=== PATIENT | female | born 1970 | race Caucasian/White ===

== ENCOUNTER 2018-12-09 07:37 | Observation (INO) ==
[2018-12-09 07:49] VITALS: BMI 35.2
--- NOTE | 2018-12-09 08:08 | DR.CP ---
HPI Time Seen Time Seen by Provider: 12/09/18 08:05 PCP Primary Care Physician: WATSON MALONEY HPI Comment HPI Comment: PATIENT IS 48YR OLD WHITE FEMALE IN THE EMERGENCY ROOM WITH PRECORDIAL CHEST PAIN, INTERMITTENT CONSTANT 6/10 DHARP PAIN CURRENTLY 8/10 PAIN. PAIN RADIATES TO BACK SOMETIME AND ASSOCIATED WITH SOB, WEAKNESS, NAUSEA AND DIAPHORESIS. NO FEVER OR URI SYMPTOMS. PAIN IS WORSE TODAY. Complaint Chief Complaint Doctor Comments: CHEST PAIN. Chief Complaint:: PT C/O CHEST PAIN TO LEFT SIDE OF CHEST. PT STATES SHE HAD SOME PAIN YESTERDAY BUT IT HAS GOTTEN REALLY BAD THIS MORNING. PT STATES SHE ALSO HAS BAD HEARTBURN/INDIGESTION Reviewed Nurses Notes Review: Yes Source History Provided: Patient Mode of Arrival Mode of Arrival: Ambulatory Timing Onset of Chief Complaint: 12/08/18 Came on: Suddenly Pain: Present Now Duration Duration: Constant Duration: Days Location Location of Chest Pain: Left and Chest Chest Pain Radiation Location: Back Context Onset: At rest Cardiac Risk Factors: Smoker and Family History PE Risk Factors: None History of: None Prehospital Care: None Quality Quality: Sharp Severity Severity: Severe Modifying Factors Worsens: Exertion Associated Signs and Symptoms Associated Signs and Symptoms: Shortness of Breath, Diaphoresis, Nausea/Vomiting and Other (WEAKNESS.) PMH PMH Past Medical History: Yes Past Medical History: GERD and Kidney Stones Past Surgical History: Yes Surgical History: Lithotripsy Family History History of Family Medical Conditions: Yes Family Medical History: Diabetes Mellitus, Cancer, Coronary Artery Disease and Hypertension Social History Does patient currently use any type of tobacco product: No Have you used tobacco products in the last 12 months: No Type of Tobacco Use: None Does any household member use tobacco: No Alcohol Use: None Do you use any recreational Drugs:: No Lives With: Family Lives Where: Home infectious screening In the last 2 months have you had wt loss of >10#?: NO Have you had fever, night sweats or hemotysis?: No Have you traveled outside the country in the last 6 months?: No Isolation: Standard ROS Review of Systems Constitutional: See HPI, Diaphoresis, Weakness and Fatigue; negative Chills, Fever, Malaise and Loss of Appetite Eyes: No Symptoms Reported and See HPI; negative Eye Pain, Tearing, Discharge and Diplopia ENTM: No Symptoms Reported and See HPI; negative Ear Pain, Nose Discharge, Nose Congestion and Throat Pain Respiratoy: Short of Breath; negative Moist Cough and Wheezing Cardiovascular: See HPI and Chest Pain; negative Edema and Palpitations Gastrointestinal/Abdominal: Nausea; negative Abdominal Pain, Constipation, Diarrhea and Vomiting Genitourinary: No Symptoms Reported and See HPI; negative Dysuria, Frequency and Hematuria Neurological: No Symptoms Reported, See HPI and Weakness; negative Headache and Dizziness Musculoskeletal: See HPI; negative Back Pain Integumentary: No Symptoms Reported and See HPI Hematologic/Lymphatic: See HPI; negative Easy Bruising and Swollen Glands Endocrine: See HPI; negative Increased Thirst, Increased Urine and Decreased Appetite Psychiatric: No Symptoms Reported and See HPI PE Vitals Vitals: Temperature 97.6 F Pulse Rate [Apical] 70 Pulse Rate 64 Respiratory Rate 28 Blood Pressure [Left Arm] 187/84 Blood Pressure 154/72 O2 Sat by Pulse Oximetry 98 General Limitations: No Limitations General Appearance: Alert and In No Apparent Distress Head Head Exam: Normal Inspection and Atraumatic Eyes Eye exam: Normal Appearance, PERRL and EOMI; negative Scleral Icterus and Conjunctival Injection ENT ENT Exam: Normal Exam, Normal Oropharynx, Normal External Ear Exam and TM's Normal Bilaterally Chest Chest Inspection: Normal Inspection and Symmetric Chest Wall Rise; negative Tenderness Respiratory Respiratory Exam: Normal Lung Sounds Bilat; negative Accessory Muscle Use, Chest Wall Tenderness and Respiratory Distress Respiratory Exam: Bilateral: Clear to Auscultation Cardiovascular Cardiovascular Exam: Regular Rate, Normal Rhythm and Normal Heart Sounds; negative Systolic Murmur and Diastolic Murmur Pulse: Normal Edema: Normal Abdominal Exam Abdominal Exam: Normal Inspection, Normal Bowel Sounds and Soft; negative Tenderness Extremities Extremities Exam: Normal Inspection and Normal Capillary Refill; negative Tenderness, Edema and Calf Tenderness Back Back Exam: Normal Inspection; negative Tenderness, (R) CVA Tenderness, (L) CVA Tenderness, Paraspinal Tenderness and Vertebral Tenderness Neurologic Neurological Exam: Alert, Oriented X3 and CN II-XII Intact; negative Motor Sens ory Deficit Psychiatric Psychiatric Exam: Normal Affect and Normal Mood Skin Skin Exam: Warm, Dry, Intact and Normal Color MDM Differential Diagnosis Differential Diagnosis: Angina, Chest Wall Pain, Cholelithasis, CHF, Costocho ndritis, Esophageal Reflux/Spasm, Gastritis, Myocardial Infarction, Pericarditis, Pleuritis, Pancreatitis, Pneumonia, Pneumothorax and Pulmonary Embolus COURSE Treatment Treatment: SEE ORDERS. 08:20AM : ASA 81MG CHEWABLE, TAB, 4TABS PO. Consultation Consultation Comments: DISCUSSED PATIENT WITH DR. AGOSTO. HE WILL ADMIT PATIENT. Education/Counseling Education/Counseling: Patient Educated On: Diagnosis ROR Labs Reviewed Laboratory Results Reviewed?: Yes Result Diagrams: 12/09/18 08:37 12/09/18 08:37 Laboratory: WBC 7.7 X10^3/uL (3.6-10.0) 12/09/18 08:37 RBC 4.68 X10^6/uL (3.5-5.4) 12/09/18 08:37 Hgb 14.3 g/dL (12.0-16.0) 12/09/18 08:37 Hct 42.0 % (36.0-47.0) 12/09/18 08:37 MCV 89.8 fL (80.0-100.0) 12/09/18 08:37 MCH 30.5 pg (27.0-34.0) 12/09/18 08:37 MCHC 33.9 g/dL (33.0-35.0) 12/09/18 08:37 RDW 13.5 % (11.6-16.5) 12/09/18 08:37 Plt Count 254 X10^3/uL (150.0-450.0) 12/09/18 08:37 MPV 9.9 fL (7.4-11.0) 12/09/18 08:37 Neut % (Auto) 56.4 % (42.0-75.0) 12/09/18 08:37 Lymph % (Auto) 31.3 % (21.0-51.0) 12/09/18 08:37 [place] % (Auto) 7.1 % (0.0-13.0) 12/09/18 08:37 Eos % (Auto) 4.6 % (0.9-2.9) H 12/09/18 08:37 Baso % (Auto) 0.6 % (0.2-1.0) 12/09/18 08:37 Neut # (Auto) 4.3 x10^3/uL (2.2-4.8) 12/09/18 08:37 Lymph # (Auto) 2.4 X10^3/uL (1.3-2.9) 12/09/18 08:37 [place] # (Auto) 0.5 x10^3/uL (0.3-0.8) 12/09/18 08:37 Eos # (Auto) 0.4 x10^3/uL (0.0-0.2) H 12/09/18 08:37 Baso # (Auto) 0.0 X10^3/uL (0.0-0.1) 12/09/18 08:37 Absolute Nucleated RBC 0.0 /100WBC 12/09/18 08:37 D-Dimer < 100 ng/mL (0-400) 12/09/18 08:37 Sodium 143 mmol/L (136-145) 12/09/18 08:37 Corrected Sodium TNP 12/09/18 08:37 Potassium 4.0 mmol/L (3.5-5.1) 12/09/18 08:37 Chloride 106 mmol/L (98-107) 12/09/18 08:37 Carbon Dioxide 28.6 mmol/L (21-32) 12/09/18 08:37 BUN 16 mg/dL (7-18) 12/09/18 08:37 Creatinine 1.05 mg/dL (0.55-1.02) H 12/09/18 08:37 Est GFR (MDRD) Af Amer > 60 (>60) 12/09/18 08:37 Est GFR (MDRD) Non-Af 59 (>60) 12/09/18 08:37 Glucose 88 mg/dL (65-99) 12/09/18 08:37 Calcium 8.9 mg/dL (8.5-10.1) 12/09/18 08:37 Corrected Calcium TNP 12/09/18 08:37 Total Bilirubin 1.40 mg/dL (0.2-1.0) H 12/09/18 08:37 AST 20 Units/L (15-37) 12/09/18 08:37 ALT 49 Units/L (12-78) 12/09/18 08:37 Alkaline Phosphatase 72 Units/L (46-116) 12/09/18 08:37 Creatine Kinase 44 Units/L (26-192) 12/09/18 10:30 CK-MB (CK-2) < 1.0 ng/mL (0-4.0) 12/09/18 10:30 CK/CKMB % Calc 2.3 % (<4) 12/09/18 10:30 Troponin I < 0.02 ng/mL (0-1.5) 12/09/18 10:30 B-Natriuretic Peptide 5.1 pg/mL (0-79) 12/09/18 08:37 Total Protein 6.7 g/dL (6.4-8.2) 12/09/18 08:37 Albumin 3.6 g/dL (3.4-5.0) 12/09/18 08:37 Globulin 3.1 g/dL (2.5-4.5) 12/09/18 08:37 Albumin/Globulin Ratio 1.2 Ratio (1.1-2.1) 12/09/18 08:37 Triglycerides 100 mg/dL (0-150) 12/09/18 10:30 Cholesterol 153 mg/dL (0-200) 12/09/18 10:30 LDL Cholesterol, Calc 75 mg/dL (0-100) 12/09/18 10:30 HDL Cholesterol 58 mg/dL (40-60) 12/09/18 10:30 Cholesterol/HDL Ratio 2.6 (0.0-5.0) 12/09/18 10:30 Specimen Type Clean catch urine 12/09/18 08:48 Urine Color Yellow (YELLOW) 12/09/18 08:48 Urine Appearance Slightly hazy (CLEAR) 12/09/18 08:48 Urine pH 8.0 (5.0 - 8.0) 12/09/18 08:48 Ur Specific [place] 1.015 (1.000-1.030) 12/09/18 08:48 Urine Protein Negative (NEGATIVE) 12/09/18 08:48 Urine Glucose (UA) Negative (NEGATIVE) 12/09/18 08:48 Urine Ketones Negative (NEGATIVE) 12/09/18 08:48 Urine Occult Blood Negative (NEGATIVE) 12/09/18 08:48 Urine Nitrite Negative (NEGATIVE) 12/09/18 08:48 Urine Bilirubin Negative (NEGATIVE) 12/09/18 08:48 Urine Urobilinogen Normal (NORMAL) 12/09/18 08:48 Ur Leukocyte Esterase 1+ (NEGATIVE) 12/09/18 08:48 Urine RBC 0-2 /HPF (0-3) 12/09/18 08:48 Urine WBC 0-2 /HPF (0-5) 12/09/18 08:48 Ur Squamous Epith Cells Rare /HPF (NEGATIVE) 12/09/18 08:48 Amorphous Sediment 1+ /HPF (NEGATIVE) 12/09/18 08:48 Urine Bacteria Trace /HPF (NEGATIVE) 12/09/18 08:48 Ur Culture Indicated? No/not indicated 12/09/18 08:48 XRAY XRAY Interpreted by: Radiologist XRAY Findings: REPORT NOTED AND DISCUSSED WITH PATIENT. EKG Rate: 79 [place]: Normal Rhythm: NSR Block: None Hypertrophy: LVH ST: Nonsp Opioid Opioid Risk Tool Total: 0 Total Score Risk Category: Low Risk Copyright: [facility] predicting aberrant behaviors Diagnosis Discharge Problem: Chest pain Qualifiers: Chest pain type: precordial pain Qualified Code(s): R07.2 - Precordial pain
[2018-12-09] MEDS ORDERED: ASPIRIN 81 MG CHEWTAB PO ONE (08:20)
[2018-12-09] MEDS ORDERED: ASPIRIN 81 MG CHEWTAB ONE (08:23)
--- NOTE | 2018-12-09 08:37 | RAD ---
Examination: Chest, portable AP History: Chest pain Findings: Normal transverse heart diameter with clear lungs and pleural spaces. Impression: Examination within normal limits. Reported By:
[2018-12-09 08:46] LABS: BASOPHILS % (AUTO) 0.6 % (0.2-1.0); EOSINOPHILS # (AUTO) 0.4 x10^3/uL (0.0-0.2); EOSINOPHILS % (AUTO) 4.6 % (0.9-2.9); HEMOGLOBIN 14.3 g/dL (12.0-16.0); LYMPHOCYTES # (AUTO) 2.4 X10^3/uL (1.3-2.9); LYMPHOCYTES % (AUTO) 31.3 % (21.0-51.0); MEAN CORPUSCULAR HEMOGLOBIN 30.5 pg (27.0-34.0); MEAN CORPUSCULAR HGB CONC 33.9 g/dL (33.0-35.0); MEAN CORPUSCULAR VOLUME 89.8 fL (80.0-100.0); MEAN PLATELET VOLUME 9.9 fL (7.4-11.0); MONOCYTES # (AUTO) 0.5 x10^3/uL (0.3-0.8); MONOCYTES % (AUTO) 7.1 % (0.0-13.0); NEUTROPHILS # (AUTO) 4.3 x10^3/uL (2.2-4.8); NEUTROPHILS % (AUTO) 56.4 % (42.0-75.0); PLATELET COUNT 254 X10^3/uL (150.0-450.0); RED BLOOD COUNT 4.68 X10^6/uL (3.5-5.4); RED CELL DISTRIBUTION WIDTH 13.5 % (11.6-16.5); WHITE BLOOD COUNT 7.7 X10^3/uL (3.6-10.0)
[2018-12-09 09:04] LABS: BILIRUBIN,URINE NEGATIVE (NEGATIVE); BLOOD/HEMOGLOBIN,URINE NEGATIVE (NEGATIVE); GLUCOSE, URINE NEGATIVE (NEGATIVE); KETONES,URINE NEGATIVE (NEGATIVE); LEUKOCYTE ESTERASE ,URINE 1+ (NEGATIVE); NITRITES,URINE NEGATIVE (NEGATIVE); PROTEIN,URINE NEGATIVE (NEGATIVE); UROBILINOGEN,URINE NORMAL (NORMAL)
[2018-12-09 09:07] LABS: ALANINE AMINOTRANSFERASE 49 Units/L (12-78); ALBUMIN 3.6 g/dL (3.4-5.0); ALKALINE PHOSPHATASE 72 Units/L (46-116); ASPARTATE AMINO TRANSFERASE 20 Units/L (15-37); BLOOD UREA NITROGEN 16 mg/dL (7-18); CALCIUM 8.9 mg/dL (8.5-10.1); CARBON DIOXIDE 28.6 mmol/L (21-32); CHLORIDE 106 mmol/L (98-107); CKMB % 2.3 % (<4); CREATINE KINASE 44 Units/L (26-192); CREATINE KINASE MB < 1.0 ng/mL (0-4.0); CREATININE 1.05 mg/dL (0.55-1.02); SODIUM 143 mmol/L (136-145); TOTAL PROTEIN 6.7 g/dL (6.4-8.2); eGFR NON BLACK RACES 59 (>60)
[2018-12-09 09:11] LABS: APPEARANCE,URINE SLIGHTLY HAZY (CLEAR); COLOR,URINE YELLOW (YELLOW)
[2018-12-09 09:12] LABS: AMORPHOUS SEDIMENT,UR 1+ /HPF (NEGATIVE); BACTERIA,URINE TRACE /HPF (NEGATIVE); RBC,URINE 0-2 /HPF (0-3); SQUAMOUS EPITHELIAL CELL,UR RARE /HPF (NEGATIVE)
[2018-12-09 09:24] LABS: TROPONIN I 0.06 ng/mL (0-1.5)
[2018-12-09 10:58] LABS: CHOL/HDL RATIO 2.6 (0.0-5.0); CHOLESTEROL 153 mg/dL (0-200); CKMB % 2.3 % (<4); CREATINE KINASE 44 Units/L (26-192); CREATINE KINASE MB < 1.0 ng/mL (0-4.0); HDL CHOLESTEROL 58 mg/dL (40-60); TRIGLYCERIDES 100 mg/dL (0-150); TROPONIN I < 0.02 ng/mL (0-1.5)
[2018-12-09] MEDS ORDERED: NITROSTAT SL PRN (11:33)
--- NOTE | 2018-12-09 11:54 | DR.H&P ---
H&P History & Physical for Day of: H&P Date: 12/09/18 Chief Complaint Chief Complaint: Chest pain Allergies Allergies Allergy/AdvReac Type Severity Reaction Status Date / Time codeine AdvReac NAUSEA Verified 04/24/18 16:54 History of Present Illness History of Present Illness: Pt is a 48 yo f pmhx presenting w/ chest pain since yesterday that became acutely worse this morning. She reports pain that is substernal, intermittent, sharp, localized, does not radiate. Does not appear to be just on exertion. Associated symptoms of some nausea, diaphoresis, some shor tness of breath, epigastric pain. Denies fevers, chills, lightheadedness, dizziness, weakness, numbness, dysuria, diarrhea, edema. She does state she has had problems of heartburn. Also reports strong family history of heart disease. Father and mother of heart attacks. She is followed at [facility]. Past Medical History Past Medical History: GERD and Kidney Stones Past Surgical History Surgical History: Lithotripsy Family History Family Medical History: Diabetes Mellitus, Cancer, Coronary Artery Disease and Hypertension Social History Does patient currently use any type of tobacco product: No Have you used tobacco products in the last 12 months: No Type of Tobacco Use: None Does any household member use tobacco: No Alcohol Use: None Medications Home Medications: codeine Adverse Reaction (Verified 04/24/18 16:54) NAUSEA Labs Result Diagrams: 12/09/18 08:37 12/09/18 08:37 Labs: Laboratory WBC 7.7 X10^3/uL (3.6-10.0) 12/09/18 08:37 RBC 4.68 X10^6/uL (3.5-5.4) 12/09/18 08:37 Hgb 14.3 g/dL (12.0-16.0) 12/09/18 08:37 Hct 42.0 % (36.0-47.0) 12/09/18 08:37 MCV 89.8 fL (80.0-100.0) 12/09/18 08:37 MCH 30.5 pg (27.0-34.0) 12/09/18 08:37 MCHC 33.9 g/dL (33.0-35.0) 12/09/18 08:37 RDW 13.5 % (11.6-16.5) 12/09/18 08:37 Plt Count 254 X10^3/uL (150.0-450.0) 12/09/18 08:37 MPV 9.9 fL (7.4-11.0) 12/09/18 08:37 Neut % (Auto) 56.4 % (42.0-75.0) 12/09/18 08:37 Lymph % (Auto) 31.3 % (21.0-51.0) 12/09/18 08:37 [place] % (Auto) 7.1 % (0.0-13.0) 12/09/18 08:37 Eos % (Auto) 4.6 % (0.9-2.9) H 12/09/18 08:37 Baso % (Auto) 0.6 % (0.2-1.0) 12/09/18 08:37 Neut # (Auto) 4.3 x10^3/uL (2.2-4.8) 12/09/18 08:37 Lymph # (Auto) 2.4 X10^3/uL (1.3-2.9) 12/09/18 08:37 [place] # (Auto) 0.5 x10^3/uL (0.3-0.8) 12/09/18 08:37 Eos # (Auto) 0.4 x10^3/uL (0.0-0.2) H 12/09/18 08:37 Baso # (Auto) 0.0 X10^3/uL (0.0-0.1) 12/09/18 08:37 Absolute Nucleated RBC 0.0 /100WBC 12/09/18 08:37 D-Dimer < 100 ng/mL (0-400) 12/09/18 08:37 Sodium 143 mmol/L (136-145) 12/09/18 08:37 Corrected Sodium TNP 12/09/18 08:37 Potassium 4.0 mmol/L (3.5-5.1) 12/09/18 08:37 Chloride 106 mmol/L (98-107) 12/09/18 08:37 Carbon Dioxide 28.6 mmol/L (21-32) 12/09/18 08:37 BUN 16 mg/dL (7-18) 12/09/18 08:37 Creatinine 1.05 mg/dL (0.55-1.02) H 12/09/18 08:37 Est GFR (MDRD) Af Amer > 60 (>60) 12/09/18 08:37 Est GFR (MDRD) Non-Af 59 (>60) 12/09/18 08:37 Glucose 88 mg/dL (65-99) 12/09/18 08:37 Calcium 8.9 mg/dL (8.5-10.1) 12/09/18 08:37 Corrected Calcium TNP 12/09/18 08:37 Total Bilirubin 1.40 mg/dL (0.2-1.0) H 12/09/18 08:37 AST 20 Units/L (15-37) 12/09/18 08:37 ALT 49 Units/L (12-78) 12/09/18 08:37 Alkaline Phosphatase 72 Units/L (46-116) 12/09/18 08:37 Creatine Kinase 44 Units/L (26-192) 12/09/18 10:30 CK-MB (CK-2) < 1.0 ng/mL (0-4.0) 12/09/18 10:30 CK/CKMB % Calc 2.3 % (<4) 12/09/18 10:30 Troponin I < 0.02 ng/mL (0-1.5) 12/09/18 10:30 B-Natriuretic Peptide 5.1 pg/mL (0-79) 12/09/18 08:37 Total Protein 6.7 g/dL (6.4-8.2) 12/09/18 08:37 Albumin 3.6 g/dL (3.4-5.0) 12/09/18 08:37 Globulin 3.1 g/dL (2.5-4.5) 12/09/18 08:37 Albumin/Globulin Ratio 1.2 Ratio (1.1-2.1) 12/09/18 08:37 Triglycerides 100 mg/dL (0-150) 12/09/18 10:30 Cholesterol 153 mg/dL (0-200) 12/09/18 10:30 LDL Cholesterol, Calc 75 mg/dL (0-100) 12/09/18 10:30 HDL Cholesterol 58 mg/dL (40-60) 12/09/18 10:30 Cholesterol/HDL Ratio 2.6 (0.0-5.0) 12/09/18 10:30 Specimen Type Clean catch urine 12/09/18 08:48 Urine Color Yellow (YELLOW) 12/09/18 08:48 Urine Appearance Slightly hazy (CLEAR) 12/09/18 08:48 Urine pH 8.0 (5.0 - 8.0) 12/09/18 08:48 Ur Specific [place] 1.015 (1.000-1.030) 12/09/18 08:48 Urine Protein Negative (NEGATIVE) 12/09/18 08:48 Urine Glucose (UA) Negative (NEGATIVE) 12/09/18 08:48 Urine Ketones Negative (NEGATIVE) 12/09/18 08:48 Urine Occult Blood Negative (NEGATIVE) 12/09/18 08:48 Urine Nitrite Negative (NEGATIVE) 12/09/18 08:48 Urine Bilirubin Negative (NEGATIVE) 12/09/18 08:48 Urine Urobilinogen Normal (NORMAL) 12/09/18 08:48 Ur Leukocyte Esterase 1+ (NEGATIVE) 12/09/18 08:48 Urine RBC 0-2 /HPF (0-3) 12/09/18 08:48 Urine WBC 0-2 /HPF (0-5) 12/09/18 08:48 Ur Squamous Epith Cells Rare /HPF (NEGATIVE) 12/09/18 08:48 Amorphous Sediment 1+ /HPF (NEGATIVE) 12/09/18 08:48 Urine Bacteria Trace /HPF (NEGATIVE) 12/09/18 08:48 Ur Culture Indicated? No/not indicated 12/09/18 08:48 Review of Systems Constitutional: Sweats; denies Fever, Chills and Weakness Eyes: No Symptoms Reported ENT: No Symptoms Reported Respiratory: Shortness of Breath; denies Cough, SOB with Excertion, Pleuritic Pain and Wheezing Cardiovascular: Chest Pain and See HPI; denies Edema and Light Headedness Gastrointestinal: See HPI, Nausea and Abdominal Pain; denies Vomiting, Diarrhea, Constipation and Melena Genitourinary: No Symptoms Reported Musculoskeletal: No Symptoms Reported Skin: No Symptoms Reported Neurological: No Symptoms Reported Physical Exam Vital Signs: Temperature 97.6 F Pulse Rate [Apical] 70 Pulse Rate 64 Respiratory Rate 28 Blood Pressure [Left Arm] 187/84 Blood Pressure 154/72 O2 Sat by Pulse Oximetry 98 Oriented: Normal Eyes: Normal Ear: Normal Nose: Normal Respiratory: Clear Throughout Cardiovascular: Normal : Normal Auscultation: Bowel Sounds: Normal Palpation: Normal Tenderness: Epigastric (mild, no rebound tenderness or guarding) and Mild; negative Suprapubic, Guarding and Rigidity Skin: Normal Musculoskeletal: Normal Psychiatric: Normal Mood Description: Calm Affect: Normal Speech Pattern: Clear Assessment/Plan (1) Chest pain: Qualifiers: Chest pain type: precordial pain Qualified Code(s): R07.2 - Precordial pain Status: Acute Plan: -Will continue to monitor patient for chest pain r/o. Initial Ekg, CXR, and cardiac enzymes negative, will continue to trend. VS stable. -Pt may need stress and referral to cardiology outpt if workup negative. (2) GERD (gastroesophageal reflux disease): Qualifiers: Esophagitis presence: esophagitis presence not specified Qualified Code(s): K21.9 - Gastro-esophageal reflux disease without esophagitis Status: Acute Plan: -Will start Pepcid and Carafate. -Pt may need referral to GI outpt. (3) RITA (acute kidney injury): Status: Acute Plan: Mild RITA; Cr:1.05 Continue IVF
[2018-12-09] MEDS ORDERED: PROTONIX INJ 40 MG VIAL IVP SCH (12:00)
[2018-12-09] MEDS: NS 1000 ML 1,000 ML IV SCH (12:59)
[2018-12-09 17:40] LABS: CKMB % 2.3 % (<4); CREATINE KINASE 44 Units/L (26-192); CREATINE KINASE MB < 1.0 ng/mL (0-4.0); TROPONIN I < 0.02 ng/mL (0-1.5)
[2018-12-10 00:14] LABS: CKMB % 2.6 % (<4); CREATINE KINASE 39 Units/L (26-192); CREATINE KINASE MB < 1.0 ng/mL (0-4.0); TROPONIN I < 0.02 ng/mL (0-1.5)
[2018-12-10] MEDS: NS 1000 ML 1,000 ML IV SCH (04:56)
[2018-12-10 05:28] LABS: BASOPHILS # (AUTO) 0.1 X10^3/uL (0.0-0.1); BASOPHILS % (AUTO) 1.1 % (0.2-1.0); EOSINOPHILS # (AUTO) 0.4 x10^3/uL (0.0-0.2); EOSINOPHILS % (AUTO) 6.4 % (0.9-2.9); HEMATOCRIT 40.3 % (36.0-47.0); HEMOGLOBIN 13.2 g/dL (12.0-16.0); LYMPHOCYTES # (AUTO) 2.8 X10^3/uL (1.3-2.9); LYMPHOCYTES % (AUTO) 41.6 % (21.0-51.0); MEAN CORPUSCULAR HEMOGLOBIN 30.1 pg (27.0-34.0); MEAN CORPUSCULAR HGB CONC 32.8 g/dL (33.0-35.0); MEAN CORPUSCULAR VOLUME 91.8 fL (80.0-100.0); MONOCYTES # (AUTO) 0.5 x10^3/uL (0.3-0.8); MONOCYTES % (AUTO) 7.1 % (0.0-13.0); NEUTROPHILS # (AUTO) 2.9 x10^3/uL (2.2-4.8); NEUTROPHILS % (AUTO) 43.8 % (42.0-75.0); PLATELET COUNT 219 X10^3/uL (150.0-450.0); RED BLOOD COUNT 4.39 X10^6/uL (3.5-5.4); RED CELL DISTRIBUTION WIDTH 13.3 % (11.6-16.5); WHITE BLOOD COUNT 6.7 X10^3/uL (3.6-10.0)
[2018-12-10] MEDS ORDERED: TYLENOL 325 MG TAB PO PRN (05:39)
[2018-12-10 05:40] LABS: ALANINE AMINOTRANSFERASE 40 Units/L (12-78); ALBUMIN 3.1 g/dL (3.4-5.0); ALKALINE PHOSPHATASE 62 Units/L (46-116); ASPARTATE AMINO TRANSFERASE 15 Units/L (15-37); BLOOD UREA NITROGEN 15 mg/dL (7-18); CALCIUM 8.3 mg/dL (8.5-10.1); CARBON DIOXIDE 26.5 mmol/L (21-32); CHLORIDE 106 mmol/L (98-107); CREATININE 0.93 mg/dL (0.55-1.02); SODIUM 141 mmol/L (136-145); TOTAL PROTEIN 6.2 g/dL (6.4-8.2); eGFR NON BLACK RACES > 60 (>60)
[2018-12-10] MEDS ORDERED: TYLENOL 325 MG TAB PO ONE (05:46)
[2018-12-10] MEDS: CARAFATE ORAL SUSP PO SCH ×3 (05:52→11:57)
[2018-12-10] MEDS ORDERED: MICRO K EXTEN CAP 10 MEQ PO PRN (06:00)
[2018-12-10] MEDS ORDERED: POTASSIUM CHL 60 MEQ/NS 0.45% 500 ML IV PRN (06:00)
[2018-12-10] MEDS ORDERED: K-RIDER 10 MEQ/NS 100 ML 10 MEQ/100 ML BAG IV PRN (06:00)
[2018-12-10] MEDS ORDERED: K-DUR TAB 20 MEQ PO PRN (06:00)
[2018-12-10] MEDS ORDERED: POTASSIUM CHL 40 MEQ/NS 0.45% 500 ML IV PRN (06:00)
[2018-12-10] MEDS ORDERED: MAGNESIUM SULFATE 1 GRAM/100 mL PREMIX 1 GM/100 ML BAG IV PRN (06:00)
[2018-12-10] MEDS ORDERED: KLOR-CON PO PRN (06:00)
[2018-12-10] MEDS ORDERED: POTASSIUM CHLORIDE LIQ 20 MEQ UDC PO PRN (06:00)
[2018-12-10] MEDS ORDERED: ASPIRIN PO SCH (09:00)
[2018-12-10] MEDS ORDERED: PEPCID TAB 20 MG PO SCH (09:00)
--- NOTE | 2018-12-10 10:37 | W.DIS.FURT ---
Summary of Discharge Discharge Summary of Date Date of Exam: 12/10/18 Admission Date Date of Admission: 12/09/18 Admission Diagnosis Patient Problems (Updated 12/10/18 @ 10:36 by Jorje Haq) RITA (acute kidney injury) (Acute) N17.9 GERD (gastroesophageal reflux disease) (Acute) K21.9 Chest pain (Acute) R07.9 Hospital Course: Pt is a 48 yo f pmhx was admitted for chest pain rule out. She reported sx that occurred for 2 days prior but became acutely worse on morning of admission. She reported that pain was middle of chest, intermittent, sharp, localized, does not radiate. Does not appear to be related to exertion. Associated symptoms of some nausea, shortness of breath, epigastric pain. She also reported having issues with heartburn. Concern given for observation d/t strong family history of heart disease. Father and mother of heart attacks. EKG was unremarkable including one on day of discharge. Troponins negative x3, CXR negative. She did have mild RITA that resolved after IVF hydration. Vitals remained stable. She is followed at [facility]. Discussed w/ pt and recommended to follow up with her pcp at [facility] as soon as possible. She will likely need anti hypertensive medication(to be determined by pcp), exercise stress test, and possibly referral to GI for GERD symptoms. Pt verbalized understanding, cardiac precautions given. Pt discharged home. Vital Signs: Vital Signs (72 hours) 12/09/18 07:43 12/09/18 08:04 12/09/18 08:30 Temperature 97.6 F Pulse Rate 75 73 67 Pulse Rate [Apical] 70 Respiratory Rate 20 17 16 Blood Pressure 140/81 Blood Pressure [Left Arm] 187/84 Blood Pressure [Right Arm] O2 Sat by Pulse Oximetry 99 99 98 12/09/18 08:49 12/09/18 08:50 12/09/18 09:00 Temperature Pulse Rate 79 68 67 Pulse Rate [Apical] Respiratory Rate 26 H 27 H Blood Pressure 133/73 146/76 Blood Pressure [Left Arm] Blood Pressure [Right Arm] O2 Sat by Pulse Oximetry 98 97 98 12/09/18 09:30 12/09/18 10:00 12/09/18 10:15 Temperature Pulse Rate 68 66 62 Pulse Rate [Apical] Respiratory Rate 28 H 30 H 28 H Blood Pressure 132/83 128/76 Blood Pressure [Left Arm] Blood Pressure [Right Arm] O2 Sat by Pulse Oximetry 97 98 97 12/09/18 10:30 12/09/18 11:00 12/09/18 12:00 Temperature Pulse Rate 74 64 Pulse Rate [Apical] Respiratory Rate 31 H 28 H Blood Pressure 146/88 154/72 141/78 Blood Pressure [Left Arm] Blood Pressure [Right Arm] O2 Sat by Pulse Oximetry 97 98 12/09/18 12:19 12/09/18 12:37 12/09/18 16:00 Temperature 97.8 F 98.1 F Pulse Rate Pulse Rate [Apical] 73 68 70 Respiratory Rate 18 20 20 Blood Pressure Blood Pressure [Left Arm] 142/77 151/78 141/71 Blood Pressure [Right Arm] O2 Sat by Pulse Oximetry 98 100 98 12/09/18 20:00 12/10/18 00:00 12/10/18 03:38 Temperature 98.2 F 97.7 F 97.7 F Pulse Rate Pulse Rate [Apical] 72 66 79 Respiratory Rate 24 26 H 16 Blood Pressure Blood Pressure [Left Arm] 152/87 Blood Pressure [Right Arm] 145/84 143/79 O2 Sat by Pulse Oximetry 99 99 98 12/10/18 05:51 12/10/18 06:51 12/10/18 08:00 Temperature 98 F Pulse Rate Pulse Rate [Apical] 65 Respiratory Rate 20 18 18 Blood Pressure Blood Pressure [Left Arm] Blood Pressure [Right Arm] 122/69 O2 Sat by Pulse Oximetry 100 Labs: Laboratory Last Values WBC 6.7 X10^3/uL (3.6-10.0) 12/10/18 04:17 RBC 4.39 X10^6/uL (3.5-5.4) 12/10/18 04:17 Hgb 13.2 g/dL (12.0-16.0) 12/10/18 04:17 Hct 40.3 % (36.0-47.0) 12/10/18 04:17 MCV 91.8 fL (80.0-100.0) 12/10/18 04:17 MCH 30.1 pg (27.0-34.0) 12/10/18 04:17 MCHC 32.8 g/dL (33.0-35.0) L 12/10/18 04:17 RDW 13.3 % (11.6-16.5) 12/10/18 04:17 Plt Count 219 X10^3/uL (150.0-450.0) 12/10/18 04:17 MPV 11.0 fL (7.4-11.0) 12/10/18 04:17 Neut % (Auto) 43.8 % (42.0-75.0) 12/10/18 04:17 Lymph % (Auto) 41.6 % (21.0-51.0) 12/10/18 04:17 [place] % (Auto) 7.1 % (0.0-13.0) 12/10/18 04:17 Eos % (Auto) 6.4 % (0.9-2.9) H 12/10/18 04:17 Baso % (Auto) 1.1 % (0.2-1.0) H 12/10/18 04:17 Neut # (Auto) 2.9 x10^3/uL (2.2-4.8) 12/10/18 04:17 Lymph # (Auto) 2.8 X10^3/uL (1.3-2.9) 12/10/18 04:17 [place] # (Auto) 0.5 x10^3/uL (0.3-0.8) 12/10/18 04:17 Eos # (Auto) 0.4 x10^3/uL (0.0-0.2) H 12/10/18 04:17 Baso # (Auto) 0.1 X10^3/uL (0.0-0.1) 12/10/18 04:17 Absolute Nucleated RBC 0.1 /100WBC 12/10/18 04:17 D-Dimer < 100 ng/mL (0-400) 12/09/18 08:37 Sodium 141 mmol/L (136-145) 12/10/18 04:17 Corrected Sodium TNP 12/10/18 04:17 Potassium 3.4 mmol/L (3.5-5.1) L 12/10/18 04:17 Chloride 106 mmol/L (98-107) 12/10/18 04:17 Carbon Dioxide 26.5 mmol/L (21-32) 12/10/18 04:17 BUN 15 mg/dL (7-18) 12/10/18 04:17 Creatinine 0.93 mg/dL (0.55-1.02) 12/10/18 04:17 Est GFR (MDRD) Af Amer > 60 (>60) 12/10/18 04:17 Est GFR (MDRD) Non-Af > 60 (>60) 12/10/18 04:17 Glucose 92 mg/dL (65-99) 12/10/18 04:17 Calcium 8.3 mg/dL (8.5-10.1) L 12/10/18 04:17 Corrected Calcium 9.0 mg/dL (8.5-10.1) 12/10/18 04:17 Magnesium 2.2 mg/dL (1.7-2.9) 12/10/18 04:17 Total Bilirubin 1.40 mg/dL (0.2-1.0) H 12/10/18 04:17 AST 15 Units/L (15-37) 12/10/18 04:17 ALT 40 Units/L (12-78) 12/10/18 04:17 Alkaline Phosphatase 62 Units/L (46-116) 12/10/18 04:17 Creatine Kinase 39 Units/L (26-192) 12/09/18 23:34 CK-MB (CK-2) < 1.0 ng/mL (0-4.0) 12/09/18 23:34 CK/CKMB % Calc 2.6 % (<4) 12/09/18 23:34 Troponin I < 0.02 ng/mL (0-1.5) 12/09/18 23:34 B-Natriuretic Peptide 5.1 pg/mL (0-79) 12/09/18 08:37 Total Protein 6.2 g/dL (6.4-8.2) L 12/10/18 04:17 Albumin 3.1 g/dL (3.4-5.0) L 12/10/18 04:17 Globulin 3.1 g/dL (2.5-4.5) 12/10/18 04:17 Albumin/Globulin Ratio 1.0 Ratio (1.1-2.1) L 12/10/18 04:17 Triglycerides 100 mg/dL (0-150) 12/09/18 10:30 Cholesterol 153 mg/dL (0-200) 12/09/18 10:30 LDL Cholesterol, Calc 75 mg/dL (0-100) 12/09/18 10:30 HDL Cholesterol 58 mg/dL (40-60) 12/09/18 10:30 Cholesterol/HDL Ratio 2.6 (0.0-5.0) 12/09/18 10:30 Amylase 40 Units/L (25-115) 12/09/18 10:30 Specimen Type Clean catch urine 12/09/18 08:48 Urine Color Yellow (YELLOW) 12/09/18 08:48 Urine Appearance Slightly hazy (CLEAR) 12/09/18 08:48 Urine pH 8.0 (5.0 - 8.0) 12/09/18 08:48 Ur Specific Pope 1.015 (1.000-1.030) 12/09/18 08:48 Urine Protein Negative (NEGATIVE) 12/09/18 08:48 Urine Glucose (UA) Negative (NEGATIVE) 12/09/18 08:48 Urine Ketones Negative (NEGATIVE) 12/09/18 08:48 Urine Occult Blood Negative (NEGATIVE) 12/09/18 08:48 Urine Nitrite Negative (NEGATIVE) 12/09/18 08:48 Urine Bilirubin Negative (NEGATIVE) 12/09/18 08:48 Urine Urobilinogen Normal (NORMAL) 12/09/18 08:48 Ur Leukocyte Esterase 1+ (NEGATIVE) 12/09/18 08:48 Urine RBC 0-2 /HPF (0-3) 12/09/18 08:48 Urine WBC 0-2 /HPF (0-5) 12/09/18 08:48 Ur Squamous Epith Cells Rare /HPF (NEGATIVE) 12/09/18 08:48 Amorphous Sediment 1+ /HPF (NEGATIVE) 12/09/18 08:48 Urine Bacteria Trace /HPF (NEGATIVE) 12/09/18 08:48 Ur Culture Indicated? No/not indicated 12/09/18 08:48 Reason For Visit: CHEST PAIN RULE OUT [place] Discharge Date Discharge Date: 12/10/18 Discharge Diagnosis All Active Problems (Updated 12/10/18 @ 10:36 by Jorje Haq) RITA (acute kidney injury) (Acute) GERD (gastroesophageal reflux disease) (Acute) Calcaneal spur of left foot (Chronic) Chest pain (Acute) Plan of Treatment: Continue with present treatment and follow up plan. Pt is to keep follow up appointment as instructed and take medications as ordered. Discharge Medications Discharge Medications: codeine Adverse Reaction (Verified 04/24/18 16:54) NAUSEA New Prescriptions ranitidine HCl [Zantac] 150 mg PO BID 30 Days #60 tab 12/10/18 [Rx] sucralfate 1 g PO ACHS 30 Days #450 ml 12/10/18 [Rx] Follow up and Referral Follow Up: 1 Week Discharge Disposition Discharge Disposition: Home
[2018-12-10 11:56] VITALS: BP 116/70
== END 2018-12-10 11:35 | disposition home or self-care (01) ==
LOC: MED/SURG 07:42 → ER 07:42 → MED/SURG 12:20
PROVIDERS: ADMIT Family Medicine; ATTEND Family Medicine
DX: K21.9 Gastro-esophageal reflux disease without esophagitis; R53.1 Weakness; R07.2 Precordial pain; R06.02 Shortness of breath; R94.31 Abnormal electrocardiogram [ECG] [EKG]; N17.8 Other acute kidney failure; M77.32 Calcaneal spur, left foot
CPT/HCPCS: 36415; 71010; 71045; 80053; 80061; 81001; 82150; 82550; 82553; 83735; 83880; 84484; 85025; 85378; 93005; 94760; 96365; 99284; A4222; C9113; G0378; J3490; J7030